=== PATIENT | female | born 1985 | race Caucasian/White ===

== ENCOUNTER 2018-04-21 21:53 | Emergency (ER) | payer MEDICAID ==
[~2018-04-21] VITALS: Ht 160 cm; Wt 147.4 kg
[2018-04-21 22:13] VITALS: BP_SYST 130
--- NOTE | 2018-04-21 22:17 | NUR ---
Patient triaged and placed in waiting room. VSS and patient appears in no acute distress at this time. Accompanied by SELF, awaiting available bed, and MD notified of need for MSE.
--- NOTE | 2018-04-21 23:30 | NUR ---
Patient to [facility] for evaluation. Side rails up. will assume care.
--- NOTE | 2018-04-21 23:35 | NUR ---
Patient brought by self complaining of left side rib pain x 2 weeks s/p fall. Patient states the pain has been worsening and is having difficulty taking a deep breath. Pain 4/10. No other complaints/injuries per patient or as noted. Will continue to monitor.
--- NOTE | 2018-04-21 23:37 | NUR ---
ER at bedside examining patient.
[2018-04-21] MEDS ORDERED: KETOROLAC TROMETHAMINE 30 MG VIAL IM ONE (23:45)
[2018-04-22] VITALS: BP_SYST 130
--- NOTE | 2018-04-22 | NUR ---
Patient given written and verbal discharge instructions and verbalizes understanding. ER MD discussed with patient the results and treatment provided. Patient in stable condition. ID arm band removed. Rx of Motrin 800 mg given. Patient educated on pain management and to follow up with PMD. Pain Scale 0/10 Opportunity for questions provided and answered. Medication side effect fact sheet provided.
== END 2018-04-22 | disposition home or self-care (01) ==
LOC: SED 21:53
DX: S20.212A Contusion of left front wall of thorax, initial encounter (principal); R03.0 Elevated blood-pressure reading, without diagnosis of hypertension; W19.XXXA Unspecified fall, initial encounter; Y93.89 Activity, other specified; Y92.89 Other specified places as the place of occurrence of the external cause; Y99.8 Other external cause status
CPT/HCPCS: 71100; 81025; 96372; 99284; J1885